=== PATIENT | male | born 1965 | race Two or more races ===

== ENCOUNTER 2021-08-24 07:44 | Outpatient (CLI) | payer OTHER | END 2021-08-24 07:52 | disposition home or self-care (01) | LOC: SONOGRAMA 07:44 | PROVIDERS: ATTEND Pathology Anatomic Pathology & Clinical Pathology | DX: E04.1 Nontoxic single thyroid nodule (principal) ==

== ENCOUNTER 2025-10-11 09:28 | Outpatient (CLI) | payer OTHER | END 2025-10-11 09:30 | disposition home or self-care (01) | LOC: SONOGRAMA 09:28 | PROVIDERS: ATTEND Pathology Anatomic Pathology | DX: D34 Benign neoplasm of thyroid gland (principal); E06.3 Autoimmune thyroiditis; E04.1 Nontoxic single thyroid nodule ==